=== PATIENT | female | born 1955 | race Caucasian/White ===

== ENCOUNTER 2017-07-12 11:20 | Emergency (ER) | payer MEDICAID ==
[~2017-07-12] VITALS: Ht 160 cm; Wt 117.9 kg
--- NOTE | 2017-07-12 11:22 | Emergency Room Report ---
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 Clinical Suspician of Infection? Mental Status: Sepsis Risk: Have you (or family members/close friends) recently traveled outside the [place]? If Yes, where/when: Have you had exposure to infectious disease within the past month? TB? Other? Specify: Source patient, RN notes reviewed Exam Limitations no limitations Comment Pt comes to the ED with history of difficulty swallowing liquids or food for the past 5 weeks. She is scheduled for an UGI series tomorrow but came to the ED today as she is just not feeling well. She says when she trys to drink anything or eat anything, it gets stuck in the center of her chest and it hurts really bad. No fever and no vomiting and no diarrhea. No blood noted either. She has had 2 stomach stapling over 30 years ago and has also had her GB, Appy, and MACIEJ- BSO, BTL, and a D&C in past. This trouble with swallowing started 5 weeks ago and she was scheduled for an UGI series tomorrow. She is on Opioids, Lyrica, and Benzodiapines Cardiac Chest Pain Chest pain indicative of cardiac No ALLERGIES Coded Allergies: aspirin (Severe, S-DIFF. BREATHING 07/12/17) Penicillins (Intermediate, I-RASH 07/12/17) latex (Intermediate, I-ITCHING 07/12/17) Sulfa (Sulfonamide Antibiotics) (Mild, NA-NAUSEA/VOMITING 07/12/17) Home Medications Active Scripts OXYCODONE HCL/ACETAMINOPHEN (Percocet 7.5-325 MG Tablet) 1 TAB PO Q4HP PRN pain #20 TAB Prov: 10/02/15 Gabapentin (Neurontin) 100 MG PO TID PRN pain #30 CAP Prov: 10/02/15 Reported Medications Device (Oxygen (Concentrator)) HYDROCODONE/ACETAMINOPHEN (Hydrocodon-Acetaminoph 7.5-325) 1 TAB PO QID FLUTICASONE/SALMETEROL (Advair 250-50 Diskus) 1 PUFF IN BID Fluoxetine Hcl (Prozac 20MG Capsule(Generic)) 20 MG PO TID OXYBUTYNIN CHLORIDE (Oxybutynin 5MG Tab) 5 MG PO BID Lorazepam (Ativan) 1 MG PO BIDP PRN ANXIETY Pregabalin (Lyrica 100Mg) 300 MG PO BID Docusate Sodium 100 MG PO DAILY ALBUTEROL (Albuterol 0.083% Neb) 2.5 MG INH QIDP PRN BREATHING Albuterol (Albuterol Inhaler 17GM) 2 PUFFS IN QIDP PRN BREATHING History Medical History General CAD? No Angina: No [place]: No Hypertension? No Hyperlipidemia? No CHF? No DVT? No PE? No COPD? Yes Asthma? No Anemia? No GERD? No Gastric ulcers? No GI Bleed? No Hernia? Yes Thyroid Problems? No Hypothyroidism? No CVA? No Seizures? No Diabetes? No Renal Insuffiency? No End Stage Renal Disease? No UTI? Yes Stones? Yes BPH? No GB Disease: Yes Nephritic Syndrome? No Asplenia? No Hepatitis? No Sickle Cell Disease? No Arthritis? Yes Migraines? No Cataracts? No Glaucoma? No MRSA? No HIV? No TB? No Anxiety? Yes Depression? Yes Cancer? Yes Site: PRECANCEROUS CELLS-PAPS More? Yes Additional hx: MS Immunization Hx DT/Tetanus > 10 Years Ago Flu NEVER Pneumonia NEVER Surgical Hx Previous Surgery?Y 2 STOMACH STAPLINGS GALLBLADDER Hernia X2 Hysterect TUBAL LIGATION SUPRAPUBIC CATHETER Family History Family Hx Diabetes Yes CAD Yes Hypertension Yes Hyperlipidemia Yes Cancer Yes TB No Social History Smoking Hx Packs/day < 1 Pack Alcohol Alcohol: No Review of Systems All Other Systems Reviewed and Negative Constitutional see HPI Respiratory see HPI Cardiovascular see HPI Gastrointestinal see HPI Physical Exam Vital Signs Vital Signs Date Time Temp Pulse Resp B/P Pulse O2 O2 Flow FiO2 Ox Delivery Rate 07/12 1123 98.2 75 18 122/44 98 General Appearance normal appearance, WD/WN, no apparent distress Respiratory Status No: respiratory distress. Lung Sounds bilateral: normal breath sounds. 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 No Results/Orders Orders Procedure Date/time Status UGI & ESOPHAGUS W/O AIR 07/12 1239 Active PROTIME/PARTIAL PROTIME 07/12 1239 Active LIPASE 07/12 1239 Active CBC WITH AUTO DIFF 07/12 123 Active CHEM 12 PROFILE 07/12 1239 Active AMYLASE 07/12 1239 Active Departure Departure Time of Disposition 1243 Disposition DC Home or Self Care(routine) Clinical Impression Primary Impression: Dysphagia Qualifiers: Dysphagia type: esophageal phase Qualified Code: R13.14 - Dysphagia , pharyngoesophageal phase Condition STABLE Referrals NO REFERRAL (PCP) Patient Instructions DI for Esophageal Dysphagia, Esophageal Dysphagia Additional Instructions Discussed with Radiology and they are going to do her UGI series today, hopefully they can check the esophagus as well. She is to followup with PCP or Surgeon as needed. Discharge Counseling Counseled pt/family regarding diagnosis, test results, home care, follow up needs ED Critical Care Critical Care No If Critical Care minutes are documented, the time involved in the performance of seperately reportable procedures was not counted toward critical care time documented. I directly delivered medical care to this critically ill and/or injured patient. Timely evaluation and treatment was necessary to address the significant organ system(s) dysfunction present in this patient. at 1247
[2017-07-12 12:46] LABS: HEMOGLOBIN 16.4 g/dL (12.2-16.2); LYMPH # 5.4 K/mm3 (0.7-4.5); LYMPH % 41.9 % (10-50.0)
[2017-07-12 16:26] VITALS: BP 138/69
--- NOTE | 2017-07-12 17:04 | RADIOLOGY REPORT PS360 ---
UGI ESOPHAGUS W/O AIR HISTORY: dysphagia and difficulty swallowingper [facility] . Patient gave me history of severe abdominal pain epigastric region which becomes most pronounced with eating/drinking. Patient has debilitating MS and cannot move on her own Patient Age: 62 years: Female Ordering Physician: Roddy Sterling MD TECHNIQUE: The patient lying on the table, Following ingestion of barium images of the esophagus and the stomach performed 3 minutes 15 seconds COMPARISON :CT abdomen pelvis July 2012 and December 25, 2016 FINDINGS Patient limited with limited movement. She Quite compromised in regards to her ability to move on the table. She was most comfortable on laying her stomach, and was in this position when I arrived to the table. This we had her drink initially in the prone position. The current images best visualize the thoracic esophagus which appears normal. The lower cervical esophagus is normal. There was mild GE reflux noted during the course of the exam. Stomach. There been 2 previous gastric stapling or bypass procedure. The row of transverse merlin above the GE junction with a longitudinal row of stable material of liver along the curvature of stomach. There is surprisingly does not significantly reduce the volume of the stomach. The images do show a focal protrusion laterally from the greater curvature at proximal body of stomach. This appears to be either a large ulcer measures 2.5 cm with 5 mm neck, although could reflect a gastric diverticulum or postsurgical feature.. ( I would note there is a somewhat similar focal protrusion on the CT study from December 2016 & less notable on July 2012. Thus difficult to exclude postsurgical feature). In addition there is there is thickening and distortion of the gastric rugal fold pattern. I suspect reflects a gastritis along with postsurgical distortion. Either case given the patient's pain the upper endoscopy is recommended to further evaluate. Images reviewed with Dr. Dias. . The distal body appears satisfactory. The antrum appears satisfactory but may contain some residual food-like material. More satisfactory. Initially question of potential ulcer from the duodenal bulb but I believe this is merely early filling of the duodenum on these early pictures. After additional review of all images. On the latter images we had the patient drinking in the supine position. With this there seems to be pulling of contrast within the fundus and restriction as it passes through the proximal suture line into the remainder of the stomach. I would note for to gastric reduction surgeries this patient has a relatively generous sized stomach IMPRESSION 1. HISTORY of TWO gastric reduction surgeries, but still has a surprisingly generous size residual stomach. Very Difficult to move and difficult to evaluate patient. 2. Gastritis, with suspect large gastric ulcer: .. Prominent ulcer, vs postsurgical gastric diverticulum, measures up to 2.5 cm. This located near the anastomotic line is seen extending laterally from the greater curvature ..Prominent rugal folds throughout the stomach, suggesting gastritis. . Distorted rugal folds more likely reflect surgeries . However Endoscopy recommended to further evaluate above features. 3. Mild GE reflux. . Otherwise thoracic esophagus & lower cervical esophagus unremarkable
== END 2017-07-12 16:26 | disposition home or self-care (01) ==
LOC: ER 11:20
PROVIDERS: General Practice
DX: R13.14 Dysphagia, pharyngoesophageal phase (principal); J44.9 Chronic obstructive pulmonary disease, unspecified